=== PATIENT | male | born 1985 | race Hispanic/Latino ===

== ENCOUNTER 2023-11-21 22:12 | Observation (INO) | payer OTHER ==
[~2023-11-21] VITALS: Ht 182.9 cm; Wt 204.2 kg
[2023-11-21 22:44] LABS: BASOPHILS # (AUTO) 0.01 K/uL (0.00-0.20); BASOPHILS % (AUTO) 0.1 % (0.0-5.0); EOSINOPHILS # (AUTO) 0.15 K/uL (0.00-0.70); EOSINOPHILS % (AUTO) 2.2 % (0.0-8.0); HEMATOCRIT 36.8 % (42-54); IMMATURE GRANULOCYTE ABSOLUTE 0.02 K/uL (0-1); LYMPHOCYTES # (AUTO) 1.3 K/uL (1.0-4.8); LYMPHOCYTES % (AUTO) 18.3 % (21.0-51.0); MEAN CORPUSCULAR HEMOGLOBIN 26.8 pg (27.0-33.0); MEAN CORPUSCULAR HGB CONC 32.3 g/dL (32.0-36.0); MEAN CORPUSCULAR VOLUME 82.9 fL (79-99); MONOCYTES # (AUTO) 0.6 K/uL (0.1-1.0); MONOCYTES % (AUTO) 8.4 % (3.0-13.0); NEUTROPHILS # (AUTO) 4.9 K/uL (1.8-7.7); NEUTROPHILS % (AUTO) 70.7 % (40.0-77.0); PLATELET COUNT (AUTO) 240 K/uL (130-400); RED BLOOD CELL COUNT(AUTO) 4.44 MIL/uL (4.50-6.20); RED CELL DISTRIBUTION WIDTH 15.4 % (11.0-15.5); WHITE BLOOD COUNT (AUTO) 6.9 K/uL (4.8-10.8)
[2023-11-21 22:58] LABS: APPEARANCE,URINE CLEAR (CLEAR); BILIRUBIN,URINE NEGATIVE (NEGATIVE); COLOR,URINE YELLOW (YELLOW); GLUCOSE, URINE (UA) NEGATIVE (NEGATIVE); KETONES,URINE NEGATIVE (NEGATIVE); LEUKOCYTE ESTERASE ,URINE 25 Leu/uL (NEGATIVE); NITRATE,URINE NEGATIVE (NEGATIVE); OCCULT BLOOD,URINE LARGE (NEGATIVE); PROTEIN,URINE 300 mg/dL (NEGATIVE); UROBILINOGEN,URINE 0.2 mg/dL (0.2-1.0)
[2023-11-21 23:01] LABS: ADD UA MICROSCOPIC YES
[2023-11-21 23:05] LABS: BACTERIA,URINE MOD /HPF (None Seen); MUCUS,URINE RARE LPF (None Seen); SQUAMOUS EPITHELIAL CELL,UR RARE /HPF (0-2); WBC,URINE 26-50 /HPF (0-1)
[2023-11-21 23:18] LABS: INR <= 0.93 (0.85-1.15); PROTHROMBIN TIME 10.8 SEC (9.6-11.6)
[2023-11-21 23:20] LABS: PARTIAL THROMBOPLASTIN TIME 27.3 SEC (26.3-35.5)
[2023-11-21 23:29] LABS: CREATININE 0.9 mg/dL (0.5-1.3)
[2023-11-21 23:34] LABS: ALBUMIN 2.7 g/dL (3.5-5.0); BILIRUBIN,TOTAL 0.2 mg/dL (0.2-1.0); TOTAL PROTEIN, SERUM 7.7 g/dL (6.0-8.3)
[2023-11-21 23:41] LABS: B-TYPE NATRIURETIC PEPTIDE 11 pg/mL (0-100)
[2023-11-22] VITALS (8 sets, daily range): BP systolic 117–207; BP diastolic 82–118; PULSE 81–95; RESP 18–22; O2SAT 98–100
[2023-11-22 01:48] LABS: SARS-CoV-2, RNA, NAAT NEGATIVE SARS CoV-2 (NEGATIVE)
[2023-11-22 01:49] LABS: RAPID GROUP A STREP negative (NEGATIVE)
[2023-11-22] MEDS: LOSARTAN 50 MG TABLET PO SCH (01:50)
[2023-11-22 01:59] LABS: INFLUENZA TYPE A Negative For Type A (NEGATIVE); INFLUENZA TYPE B Negative For Type B (NEGATIVE)
[2023-11-22] MEDS ORDERED: IOHEXOL 350 MG/ML 100ML INFUS..BTL IV ONE (02:34)
[2023-11-22] MEDS: ENOXAPARIN SODIUM 100 MG/1 ML SQ ONE (04:49)
[2023-11-22] MEDS ORDERED: LACTULOSE 20 GM/30 ML UDCUP PO PRN (05:00)
[2023-11-22] MEDS ORDERED: ONDANSETRON 4MG INJ IVP PRN (05:00)
[2023-11-22] MEDS ORDERED: ALBUTEROL 0.083% 2.5 MG/3 ML INH IH PRN (05:00)
[2023-11-22 07:41] LABS: THYROID STIMULATING HORMONE 4.44 uIU/mL (0.36-3.74)
[2023-11-22] MEDS: HYDRALAZINE 20MG/ML VIAL IV PRN (07:47)
[2023-11-22 15:26] LABS: ABG BASE EXCESS 0.3 mmol/L (-2.0-3.0); ABG HCO3 24.8 mmol/L (21.0-28.0); ABG OXYGEN SATURATION 93.8 % (95.0-99.0); ABG PCO2 40 mmHg (35-48); ABG PH 7.413 (7.350-7.450); VENT MODE, BG RA (ROOM AIR)
[2023-11-22] MEDS: HYDRALAZINE HCL 10 MG TABLET PO ONE (20:32)
[2023-11-22] MEDS ORDERED: ACETAMINOPHEN 325 MG TAB PO PRN (22:00)
[2023-11-22] MEDS: HYDRALAZINE 25MG TABLET PO SCH (22:37)
[2023-11-22] MEDS: ACETAMINOPHEN 325 MG TAB PO PRN (22:37)
[2023-11-23] VITALS (12 sets, daily range): BP systolic 146–180; BP diastolic 76–112; PULSE 78–116; RESP 18–22; O2SAT 90–98
[2023-11-23 05:19] LABS: BASOPHILS # (AUTO) 0.02 K/uL (0.00-0.20); BASOPHILS % (AUTO) 0.3 % (0.0-5.0); EOSINOPHILS # (AUTO) 0.12 K/uL (0.00-0.70); EOSINOPHILS % (AUTO) 1.8 % (0.0-8.0); HEMATOCRIT 36.3 % (42-54); IMMATURE GRANULOCYTE ABSOLUTE 0.03 K/uL (0-1); LYMPHOCYTES # (AUTO) 1.1 K/uL (1.0-4.8); LYMPHOCYTES % (AUTO) 16.7 % (21.0-51.0); MEAN CORPUSCULAR HEMOGLOBIN 26.7 pg (27.0-33.0); MEAN CORPUSCULAR HGB CONC 32.2 g/dL (32.0-36.0); MEAN CORPUSCULAR VOLUME 82.7 fL (79-99); MONOCYTES # (AUTO) 0.4 K/uL (0.1-1.0); MONOCYTES % (AUTO) 6.5 % (3.0-13.0); NEUTROPHILS % (AUTO) 74.3 % (40.0-77.0); PLATELET COUNT (AUTO) 234 K/uL (130-400); RED BLOOD CELL COUNT(AUTO) 4.39 MIL/uL (4.50-6.20); RED CELL DISTRIBUTION WIDTH 15.6 % (11.0-15.5); WHITE BLOOD COUNT (AUTO) 6.8 K/uL (4.8-10.8)
[2023-11-23 05:44] LABS: HEMOGLOBIN A1C 6.2 % (4.0-6.0)
[2023-11-23 05:47] LABS: CREATININE 0.9 mg/dL (0.5-1.3); MAGNESIUM 1.7 mg/dL (1.80-2.40); PHOSPHORUS 4.7 mg/dL (2.5-4.9); POTASSIUM 3.7 mmol/L (3.5-5.1); THYROID STIMULATING HORMONE 3.09 uIU/mL (0.36-3.74)
[2023-11-23] MEDS: LOSARTAN 50 MG TABLET PO SCH (09:00)
[2023-11-23] MEDS: AMLODIPINE 5 MG TAB PO SCH (11:00)
[2023-11-23] MEDS ORDERED: HYDR25 PO (12:11)
[2023-11-23] MEDS ORDERED: LOSA-418 PO (12:11)
[2023-11-23] MEDS ORDERED: AMLO5TAB4 PO (12:11)
[2023-11-23] MEDS ORDERED: HYDRALAZINE 20MG/ML VIAL IM ONE (13:15)
[2023-11-23] MEDS: HYDRALAZINE 20MG/ML VIAL IV ONE (13:16)
[2023-11-23] MEDS: ALPRAZOLAM 0.5 MG TABLET PO ONE (13:16)
== END 2023-11-23 16:20 | disposition home or self-care (01) ==
LOC: EDH 22:12 → EDHIP 11-22 04:32 → 3DH 11-22 07:19
PROVIDERS: ADMIT Internal Medicine Critical Care Medicine; ATTEND Internal Medicine Critical Care Medicine
DX: R06.03 Acute respiratory distress (principal); Z20.822 Contact with and (suspected) exposure to COVID-19; R79.89 Other specified abnormal findings of blood chemistry; E66.01 Morbid (severe) obesity due to excess calories; I10 Essential (primary) hypertension; G47.33 Obstructive sleep apnea (adult) (pediatric); R73.03 Prediabetes; R07.89 Other chest pain; R00.0 Tachycardia, unspecified; R60.0 Localized edema; M10.9 Gout, unspecified; Z79.899 Other long term (current) drug therapy; Z68.44 Body mass index [BMI] 60.0-69.9, adult
CPT/HCPCS: 82550; 84484 ×3; 80053; 83880; 85025 ×2; 85610; 85730; 87088; 81001; 36415 ×3; 71045; 93005; 96374; 96376 ×2; 96372; 99285; 84443 ×2; 80061; 82803; 85378; 87880; 87804 ×2; 87635; 71270; 78582; 93306; 93970; 36600 ×2; 83036; 83735; 84100; 80048; 94760 ×2; 84145; G0378 ×34; J0360 ×4; J1650; Q9967; A9540; A9558